=== PATIENT | male | born 2000 ===

== ENCOUNTER 2018-05-25 17:14 | Emergency (ER) | payer SELFPAY ==
--- NOTE | 2018-05-25 19:23 | UC ---
Throat Pain/Nasal William HPI - HPI Summary HPI Summary: PATIENT COMPLAINS OF SORE THROAT FOR THE PAST 2-3 DAYS. HAS PAIN WITH SWALLOWING AND SUBJECTIVE FEVER. HAS MILD COUGH AND RHINITIS BUT DENIES NAUSEA/ VOMITING. NO EAR PAIN. FEELS EXTREMELY TIRED. PATIENT PREFERS [facility]/ THEIR. - History of Current Complaint Chief Complaint: UCGeneralIllness Stated Complaint: THROAT PAIN Time Seen by Provider: 05/25/18 19:08 Hx Obtained From: Patient Onset/Duration: Gradual Onset, Lasting Days, Still Present Severity: Moderate Pain Intensity: 7 Pain Scale Used: 0-10 Numeric Cough: Nonproductive Associated Signs & Symptoms: Positive: Fever - Allergies/Home Medications Allergies/Adverse Reactions: Allergies Allergy/AdvReac Type Severity Reaction Status Date / Time No Known Allergies Allergy Verified 05/25/18 18:22 PMH/Surg Hx/FS Hx/Imm Hx Previously Healthy: Yes - Surgical History Surgical History: Yes Surgery Procedure, Year, and Place: clavicle repair - Family History Known Family History: Positive: Non-Contributory - Social History Alcohol Use: Weekly Alcohol Amount: 3 beers Substance Use Type: Marijuana Smoking Status (MU): Never Smoked Tobacco Review of Systems All Other Systems Reviewed And Are Negative: Yes Constitutional: Positive: Fever, Fatigue ENT: Positive: Sore Throat, Nasal Discharge Respiratory: Positive: Cough Cardiovascular: Positive: Negative Gastrointestinal: Positive: Negative Physical Exam Triage Information Reviewed: Yes Appearance: No Pain Distress, Well-Nourished, Ill-Appearing - MILDLY Vital Signs: Initial Vital Signs Temp 98.8 F 05/25/18 18:17 Pulse 74 05/25/18 18:17 Resp 16 05/25/18 18:17 BP 104/62 05/25/18 18:17 Pulse Ox 100 05/25/18 18:17 Laboratory Tests 05/25/18 19:02 Group A Strep Rapid Negative Vital Signs Reviewed: Yes Eyes: Positive: Conjunctiva Clear ENT: Positive: Hearing grossly normal, Pharyngeal erythema, TMs normal, Tonsillar swelling, Tonsillar exudate Neck: Positive: Supple, Tenderness @ - TENDER SPFL CERVICAL LAD, Enlarged Nodes @ - TENDER SPFL CERVICAL LAD Respiratory Exam: Normal Cardiovascular Exam: Normal Abdomen Description: Positive: Nontender, Soft Musculoskeletal: Positive: No Edema Neurological: Positive: Alert Psychological: Positive: Age Appropriate Behavior Skin: Negative: Rashes Throat Pain/Nasal Course/Dx - Differential Dx/Diagnosis Provider Diagnosis: Tonsillitis with exudate Discharge - Sign-Out/Discharge Documenting (check all that apply): Patient Departure All imaging exams completed and their final reports reviewed: No Studies - Discharge Plan Condition: Stable Disposition: HOME Prescriptions: Magic Mouth Was-CLARITZA/MAAL/LIDO* 5 - 10 ml SWISH SWAL QID PRN #150 ml PRN Reason: Sore Throat predniSONE TAB* [Deltasone 20 MG TAB*] 40 mg PO DAILY #10 tab Patient Education Materials: Tonsillitis (ED) Forms: *Work Release Referrals: No Primary Care Phys,NOPCP [Primary Care Provider] - Additional Instructions: STREP TEST NEGATIVE. YOU LIKELY HAVE A VIRAL TONSILLITIS. CONSIDER MONONUCLEOSIS. BLOOD TEST DONE TODAY. BE AWARE THERE IS A RELATIVELY HIGH FALSE NEGATIVE RATE FOR THIS TEST. OTC CHLORASEPTIC OR CEPACOL LOZENGES AND/OR IBUPROFEN FOR SORE THROAT NEEDED. MAGIC MOUTHWASH AND PREDNISONE WILL ALSO HELP WITH THE SYMPTOMS. ONCE SYMPTOMS RESOLVED - NEW TOOTHBRUSH DO NOT SHARE FOOD, DRINK, UTENSILS CALL THE NUMBER BELOW FOR ASSISTANCE IN ESTABLISHING WITH A PCP An additional resource available to assist in finding the appropriate physician for your health care needs is the [facility] ([facility]). You may contact them by calling [phone]. - Billing Disposition and Condition Condition: STABLE Disposition: Home
--- NOTE | 2018-05-26 16:00 | UC ---
- Progress Note Progress Note: Monospot from May 25, 2018 results as positive. Nursing to call patient and explained the diagnosis of mononucleosis. Patient is to follow-up with her primary care doctor or get rechecked here with any questions or concerns. Course/Dx - Diagnoses Provider Diagnoses: Tonsillitis with exudate Discharge - Sign-Out/Discharge Documenting (check all that apply): Patient Departure All imaging exams completed and their final reports reviewed: No Studies - Discharge Plan Condition: Stable Disposition: HOME Prescriptions: Magic Mouth Was-CLARITZA/MAAL/LIDO* 5 - 10 ml SWISH SWAL QID PRN #150 ml PRN Reason: Sore Throat predniSONE TAB* [Deltasone 20 MG TAB*] 40 mg PO DAILY #10 tab Patient Education Materials: Tonsillitis (ED) Forms: *Work Release Referrals: No Primary Care Phys,NOPCP [Primary Care Provider] - Additional Instructions: STREP TEST NEGATIVE. YOU LIKELY HAVE A VIRAL TONSILLITIS. CONSIDER MONONUCLEOSIS. BLOOD TEST DONE TODAY. BE AWARE THERE IS A RELATIVELY HIGH FALSE NEGATIVE RATE FOR THIS TEST. OTC CHLORASEPTIC OR CEPACOL LOZENGES AND/OR IBUPROFEN FOR SORE THROAT NEEDED. MAGIC MOUTHWASH AND PREDNISONE WILL ALSO HELP WITH THE SYMPTOMS. ONCE SYMPTOMS RESOLVED - NEW TOOTHBRUSH DO NOT SHARE FOOD, DRINK, UTENSILS CALL THE NUMBER BELOW FOR ASSISTANCE IN ESTABLISHING WITH A PCP An additional resource available to assist in finding the appropriate physician for your health care needs is the [facility] ([facility]). You may contact them by calling [phone]. - Billing Disposition and Condition Condition: STABLE Disposition: Home
== END 2018-05-25 19:35 | disposition home or self-care (01) ==
LOC: UCEAST 17:14
DX: J03.90 Acute tonsillitis, unspecified (principal)
CPT/HCPCS: 36415; 86308; 87651; 99202; G0463

== ENCOUNTER 2018-10-31 21:59 | Inpatient (IN) | payer OTHER ==
--- NOTE | 2018-10-31 22:19 | ED ---
Substance Abuse/Use - HPI Summary HPI Summary: Pt is a 18 y/o male who presents to the ED s/p overdose. Last night he took a bunch of sleeping pills from his friend in an attempted suicide. Pt is unsure what kind of pills they were, but thinks they may be either Hydroxyzine or Trazodone. Today he was sleeping a lot and also cut his left arm, and subsequently missed a final exam. Pt states that hes had mental health issues for about 8 years, which have been worsening over the past 3 years. He has been self-injuring for the past 8 months. He has never received psychiatric help because his parents are conservative and dont believe in mental health. He often feels at odds with them because of his bisexuality. Pt also denies going to [facility] for counseling because it is hard to get an appointment. He states that he has been eating very little recently. He denies any HI. Pt reports using heroin, street Xanax, MDMA, marijuana, GHB, ketamine, cocaine, and Adderall. Tetanus UTD. As per pt I feel unstable and impulse. I feel like I m destroying my life and want help. He denies any high-risk sexual activity. - History Of Current Complaint Chief Complaint: EDMentalHealth Stated Complaint: MHE/SI PER PT Time Seen by Provider: 10/31/18 22:16 Hx Obtained From: Patient Onset/Duration of Drug/ETOH Abuse: Weeks Ingestion History: Type/Name Of Drug - possible Hydroxyzine or Trazodone, Approximate Time Of Ingestion - last night Overdose Characteristics: Oral Character: Depressed Alleviating Factor(s): Nothing Associated Signs And Symptoms: Appetite Change, Intentional Ingestion Related Hx: Possible Multi Drug Ingestion, Suicidal: Thoughts, Suicidal: Gesture - Allergies/Home Medications Allergies/Adverse Reactions: Allergies Allergy/AdvReac Type Severity Reaction Status Date / Time No Known Allergies Allergy Verified 10/31/18 22:14 Home Medications: Home Medications NK [No Home Medications Reported] 10/31/18 [History Confirmed 10/31/18] PMH/Surg Hx/FS Hx/Imm Hx EENT History: Reports: Hx Tonsillitis Psychiatric History: Reports: Hx Depression - undiagnosed - Surgical History Surgery Procedure, Year, and Place: clavicle repair Infectious Disease History: No Infectious Disease History: Denies: Traveled Outside the [place] in Last 30 Days - Family History Known Family History: Positive: Non-Contributory - Social History Alcohol Use: Weekly Alcohol Amount: 3 beers Hx Substance Use: Yes Substance Use Type: Reports: Cocaine, Heroin, Marijuana, Other - ketamine, MDMA , Adderall Hx Tobacco Use: No Smoking Status (MU): Never Smoked Tobacco Review of Systems Positive: Other - decreased appetite Positive: Other - self-inflicted lacerations LUE Positive: Depressed, Other - SI, NEGATIVE: HI All Other Systems Reviewed And Are Negative: Yes Physical Exam - Summary Physical Exam Summary: Appearance: well appearing, no pain distress Skin: warm, dry, reflects adequate perfusion, old-appearing needle puncture site in right upper arm, multiple abrasions to left arm, no visible track marquez Head/face: normal Eyes: EOMI, SHINE ENT: mucous membranes moist Neck: supple, non-tender Respiratory: CTA, breath sounds present Cardiovascular: RRR, pulses symmetrical Abdomen: non-tender, soft Bowel Sounds: present Musculoskeletal: normal, strength/ROM intact Neuro: normal, sensory motor intact, A&Ox3 Psych: flat affect, persistent SI Triage Information Reviewed: Yes Vital Signs On Initial Exam: Initial Vitals Temp Pulse Resp BP Pulse Ox 99.8 F 97 16 132/83 98 10/31/18 22:04 10/31/18 22:04 10/31/18 22:04 10/31/18 22:04 10/31/18 22:04 Vital Signs Reviewed: Yes Procedures - Laceration/Wound Repair 1 Location: upper extremity - LUE Description: Linear Anesthesia: 1.0% - 3 cc, Lido Length, Depth and Shape: 4 cm Laceration/Wound Explored: clean Closure: Dorys #__ - 4 Diagnostics - Vital Signs Vital Signs Temp Pulse Resp BP Pulse Ox 10/31/18 22:04 99.8 F 97 16 132/83 98 - Laboratory Result Diagrams: 10/31/18 22:24 10/31/18 22:25 Lab Statement: Any lab studies that have been ordered have been reviewed, and results considered in the medical decision making process. - EKG 23:23 Cardiac Rate: NL - 80 bpm EKG Rhythm: Sinus Rhythm ST Segment: Normal Summary of EKG Findings: Nl axis, nl intervals Re-Evaluation - Re-Evaluation First Eval Re-Evaluation Time: 22:44 Change: Unchanged Comment: Pt is medically cleared for a MHE. Course/Dx - Course Course Of Treatment: Payroll Supervisor was medically evaluated and cleared for psychiatric evaluation. There laceration in the left upper extremity was repaired. Tetanus is up-to-date. Patient prefers they/them pronouns. Mental health evaluation is pending at time of disposition. Signed out to oncoming ER physician. Expected course is likely admission. - Diagnoses Differential Diagnosis/HQI/PQRI: Positive: Acute Psychosis, Anxiety, Depression , Drug Abuse, Metabolic Disorder, Suicidal Risk Provider Diagnoses: Depression, Polysubstance abuse, Laceration of left upper extremity, Self- inflicted injury Discharge - Sign-Out/Discharge Documenting (check all that apply): Sign-Out Patient Signing out patient TO: Rolando Felix Patient Received Moderate/Deep Sedation with Procedure: No - Discharge Plan Referrals: No Primary Care Phys,NOPCP [Primary Care Provider] - - Attestation Statements Document Initiated by Scribe: Yes Documenting Scribe: Swetha Sal Provider For Whom Scribe is Documenting (Include Credential): Chandler Mcdonough MD Scribe Attestation: Swetha Díaz, scribed for Chandler Mcdonough MD on 11/01/18 at 0618. Scribe Documentation Reviewed: Yes Provider Attestation: The documentation as recorded by the Swehta pretty accurately reflects the service I personally performed and the decisions made by , Chandler Mcdonough MD Status of Scribe Document: Viewed
[2018-10-31 22:31] LABS: ABS Eosinophils 0.1 10^3/ul (0-0.6); ABS Lymphocytes 1.5 10^3/ul (1.0-4.8); ABS Monocytes 0.5 10^3/ul (0-0.8); ABS Neutrophils 3.4 10^3/ul (1.5-7.7); Eosinophil % 1.1 %; Hematocrit 44 % (42-52); Hemoglobin 14.7 g/dL (14.0-18.0); Lymphocyte % 27.1 %; Mean Corpuscular HGB Conc 34 g/dL (31-36); Mean Corpuscular Hemoglobin 29 pg (27-31); Mean Corpuscular Volume 87 fL (80-94); Mean Platelet Volume 8.2 fL (7.4-10.4); Nucleated Red Blood Cells % 0.1; Platelet Count 349 10^3/uL (150-450); Red Blood Count 5.04 10^6 /uL (4.18-5.48); Red Cell Distribution Width 14 % (10.5-15); White Blood Count 5.5 10^3/uL (3.5-10.8)
[2018-10-31 22:48] LABS: ALT 19 U/L (7-52); AST 31 U/L (13-39); Albumin 4.8 g/dL (3.2-5.2); Albumin/Globulin Ratio 1.4 (1-3); Alkaline Phosphatase 79 U/L (34-104); Anion Gap 11 mmol/L (2-11); BUN/Creatinine Ratio 14.5 (8-20); Blood Urea Nitrogen 12 mg/dL (6-24); CO2 Carbon Dioxide 26 mmol/L (22-32); Calcium 9.9 mg/dL (8.6-10.3); Chloride 102 mmol/L (101-111); EGFR African American 142.9 (>60); EGFR Non-African American 118.1 (>60); Globulin 3.5 g/dL (2-4); Glucose 94 mg/dL (70-100); Potassium 3.6 mmol/L (3.5-5.0); Sodium 139 mmol/L (135-145); Total Protein 8.3 g/dL (6.4-8.9)
[2018-10-31 23:18] LABS: Alcohol < 10 mg/dL (<10); Salicylate < 2.50 mg/dL (<30)
[2018-10-31 23:26] LABS: Urine Appearance Cloudy; Urine Bacteria 1+ (Absent); Urine Bilirubin Negative (Negative); Urine Blood Negative (Negative); Urine Color Amber; Urine Glucose Negative (Negative); Urine Ketones 1+ (Negative); Urine Nitrite Negative (Negative); Urine Protein 2+(100 mg/dL) (Negative); Urine Red Blood Cell Absent (Absent); Urine Specific Gravity 1.032 (1.010-1.030); Urine Urobilinogen Negative (Negative); Urine White Blood Cell 3+(>20/hpf) (Absent)
[2018-10-31 23:33] LABS: TSH (Thyroid Stimulating Horm) 1.75 mcIU/mL (0.34-5.60)
[2018-10-31 23:34] LABS: Acetaminophen < 15 mcg/mL
[2018-10-31 23:43] LABS: Urine Benzodiazepine Screen Presumptive Positive (None Detect); Urine Opiates Screen None Detected (None Detect)
--- NOTE | 2018-11-01 07:03 | ED ---
Progress - Progress Note Progress Note: Pt is a signout from Dr. Mcdonough pending MHE. Re-Evaluation - Re-Evaluation First Eval Re-Evaluation Time: 09:21 Change: Unchanged Comment: As per Dr. Vasquez, the pt will be admitted to the [facility] with a dx of unspecified depression. Course/Dx - Diagnoses Provider Diagnoses: Depression Discharge - Sign-Out/Discharge Documenting (check all that apply): Patient Departure Receiving patient FROM: Chandler Mcdonough - Discharge Plan Condition: Stable Disposition: PSYCHIATRIC FACILITY-[facility] [place] - Billing Disposition and Condition Condition: STABLE Disposition: Psychiatric Facility [facility] [place] - Attestation Statements Document Initiated by Scribe: Yes Documenting Scribe: Daniela Tolentino Provider For Whom Vaishali is Documenting (Include Credential): Rolando Felix MD. Scribe Attestation: Daniela Díaz, nellieed for Rolando Felix MD. on 11/01/18 at 1040. Scribe Documentation Reviewed: Yes Provider Attestation: The documentation as recorded by the Daniela pretty accurately reflects the service I personally performed and the decisions made by Rolando waggoner MD. Status of Scribe Document: Viewed
[2018-11-01] MEDS ORDERED: Acetaminophen TAB* 325 MG PO PRN (09:32)
[2018-11-01] MEDS ORDERED: Al Hydrox/Mg Hydrox/Simet LIQ* 30 ML UDC PO PRN (09:32)
[2018-11-01 10:19] LABS: Hepatitis C Antibody Nonreactive (Nonreactive)
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
--- NOTE | 2018-11-02 13:48 | PN ---
Subjective - Subjective Date of Service: 11/02/18 Service Type: 17245 Hosp care 25 min moderate complexity Subjective: Patient is euthymic with bright affect. He is calm and pleasant. Patient given SAM packet to assist him in identifying substance use history. He reports frustration that his parents do not support mental health efforts or treatment. He is vague about plans for housing or employment after semester ends at [employer]. Objective - General Observations Appearance: Disheveled Stature: Thin Posture: WNL Eye Contact: Average Behavior/Activity: WNL - Interaction Observations Attitude Towards Examiner: Cooperative Stated Mood: Euthymic Affect: Bright Speech Pattern/Tone: Clear, Appropriate, Normal Volume Thought Process: Coherent Perception: WNL Thought Content: WNL Hallucination Type: Denies Delusion Type: Denies - Cognitive Function Orientation: A&O x 4 Level of Consciousness: Alert Cognition: WNL Estimated Intelligence: Normal Insight: Difficulty Acknowledging Presence of Psyciatric Problems Judgment Within Normal Limits: No Ability to Make Reasonable Decisions: Moderately Impaired - Group Participation Participates in Group Activities: Yes Assessment - Assessment Merits Inpatient Hospitalization: For Immediate Safety, For Stabilization, For Discharge Planning Inpatient DSM-V Dx: F39 Clinical Impression: 18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 He reports history of depressed mood and growing up in a strict, denominational household. Since coming to college, the patient has been engaging in several high risk behaviors, including substance use, shoplifting and hypersexuality. He merits hospitalization for immediate safety and stabilization. Plan - Plan Treatment Plan: Name: YVES BENTLEY Birthdate: 2000 [id number] continue acute intensive psychiatric treatment. may decrease to q30min and allow staff pass/computer use. patient to complete SAM packet consider substance use inpatient treatment Medications: Current Medications Acetaminophen (Tylenol Tab*) 650 mg PO Q4H PRN PRN Reason: for pain; or Temp >101 F Al Hydrox/Mg Hydrox/Simethicone (Maalox Plus*) 30 ml PO Q4H PRN PRN Reason: INDIGESTION Hydroxyzine HCl (Atarax Tab*) 50 mg PO Q6H PRN PRN Reason: ANXIETY - Discharge Plan Discharge Plan: Inpatient Hospitalization
[2018-11-02] MEDS: hydrOXYzine HCL TAB* 50 MG PO PRN (22:42)
--- NOTE | 2018-11-03 11:51 | PN ---
BSU: Group Therapy Note - Service Type Service Type: 46704 Group Psychotherapy - Cognitive Behavioral Group Therapy ( CBT):Patient attended CBT programming this morning and presented with flat affect that did not vary with discussion. Although responsive to direct prompts to respond to questions, patient did not engage in spontaneous conversation.
--- NOTE | 2018-11-03 14:45 | PN ---
Subjective - Subjective Date of Service: 11/03/18 Service Type: 11945 Hosp care 15 min low complexity Subjective: Patient completed substance use history, copy made for chart. He presents in pre-contemplation phase and denies need for substance use treatment. He endorses assumption that rehabs label people and do not treat mental illness. 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 Patient reports desire to engage in mental health counseling. He is encouraged to begin to solidify discharge plans in regards to housing in order to plan for outpatient mental health treatment. Patient reports poor sleep; agreeable to trial of trazodone. Objective - General Observations Appearance: Well Groomed Stature: Thin Posture: WNL Eye Contact: Average Behavior/Activity: WNL - Interaction Observations Attitude Towards Examiner: Cooperative Stated Mood: Euthymic Affect: Bright Speech Pattern/Tone: Clear, Appropriate, Normal Volume Thought Process: Coherent Perception: WNL Thought Content: WNL Hallucination Type: None Delusion Type: None - Cognitive Function Orientation: A&O x 4 Level of Consciousness: Alert Cognition: WNL Estimated Intelligence: Normal Insight: Difficulty Acknowledging Presence of Psyciatric Problems Judgment Within Normal Limits: No Ability to Make Reasonable Decisions: Mildly Impaired - Medication Compliance Cooperative with Inpatient Medication Regimen: Yes - Group Participation Participates in Group Activities: Yes Assessment - Assessment Inpatient DSM-V Dx: F39 Clinical Impression: 18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 He reports history of depressed mood and growing up in a strict, baptism household. Since coming to college, the patient has been engaging in several high risk behaviors, including substance use, shoplifting and hypersexuality. He merits hospitalization for immediate safety and stabilization. Plan - Plan Treatment Plan: Name: YVES BENTLEY Birthdate: 2000 [id number] continue acute intensive psychiatric treatment. may decrease to q30min and allow staff pass/computer use. add trazodone 50mg qhs prn insomnia discharge planning to include outpatient referrals for mental health counseling. Continued Medication Management: Start Medication Medications: Current Medications Acetaminophen (Tylenol Tab*) 650 mg PO Q4H PRN PRN Reason: for pain; or Temp >101 F Al Hydrox/Mg Hydrox/Simethicone (Maalox Plus*) 30 ml PO Q4H PRN PRN Reason: INDIGESTION Hydroxyzine HCl (Atarax Tab*) 50 mg PO Q6H PRN PRN Reason: ANXIETY Last Admin: 11/02/18 22:42 Dose: 50 mg - Discharge Plan Discharge Plan: Inpatient Hospitalization
[2018-11-03] MEDS: traZODone TAB* 50 MG TAB PO PRN (22:25)
[2018-11-03] MEDS: hydrOXYzine HCL TAB* 50 MG PO PRN (22:25)
--- NOTE | 2018-11-04 13:28 | PN ---
Subjective - Subjective Date of Service: 11/04/18 Service Type: 58274 Hosp care 15 min low complexity Subjective: Patient reports improved sleep and slightly improved mood. He reports anxiety causing dissociative episodes. Encouraged to continue use of hydroxyzine prn for anxiety. Patient states he is likely going to reschedule exams with professors. He endorses vague SI to staff. He submitted 72-hour notice this afternoon; agrees to tentative dc wednesday. Objective - General Observations Appearance: Well Groomed Stature: Thin Posture: WNL Eye Contact: Average Behavior/Activity: WNL - Interaction Observations Attitude Towards Examiner: Cooperative Stated Mood: Anxious Affect: Blunted Speech Pattern/Tone: Clear, Appropriate, Normal Volume Thought Process: Coherent Perception: WNL Thought Content: Depressive Thought Process: Lethality: Passive Wish Hallucination Type: None Delusion Type: None - Cognitive Function Orientation: A&O x 4 Level of Consciousness: Alert Cognition: WNL Estimated Intelligence: Normal Insight: Difficulty Acknowledging Presence of Psyciatric Problems Judgment Within Normal Limits: No Ability to Make Reasonable Decisions: Moderately Impaired - Medication Compliance Cooperative with Inpatient Medication Regimen: Yes - Group Participation Participates in Group Activities: Yes Assessment - Assessment Merits Inpatient Hospitalization: For Immediate Safety, For Stabilization, Consolidate Improvements Inpatient DSM-V Dx: F39 Clinical Impression: 18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 He reports history of depressed mood and growing up in a strict, cheondoism household. Since coming to college, the patient has been engaging in several high risk behaviors, including substance use, shoplifting and hypersexuality. He merits hospitalization for immediate safety and stabilization. Plan - Plan Treatment Plan: Name: YVES BENTLEY Birthdate: 2000 [id number] continue acute intensive psychiatric treatment. may decrease to q30min and allow staff pass/computer use. continue trazodone 50mg qhs prn insomnia and hydroxyzine 50mg prn anxiety discharge planning to include outpatient referrals for mental health counseling. Continued Medication Management: Consider Medication Medications: Current Medications Acetaminophen (Tylenol Tab*) 650 mg PO Q4H PRN PRN Reason: for pain; or Temp >101 F Al Hydrox/Mg Hydrox/Simethicone (Maalox Plus*) 30 ml PO Q4H PRN PRN Reason: INDIGESTION Hydroxyzine HCl (Atarax Tab*) 50 mg PO Q6H PRN PRN Reason: ANXIETY Last Admin: 11/03/18 22:25 Dose: 50 mg Trazodone HCl (Desyrel Tab*) 50 mg PO BEDTIME PRN PRN Reason: INSOMNIA Last Admin: 11/03/18 22:25 Dose: 50 mg - Discharge Plan Discharge Plan: Inpatient Hospitalization
--- NOTE | 2018-11-04 18:29 | CONS ---
PSYCHOLOGICAL REPORT: DATE OF CONSULTATION: 11/04/18 PROCEDURE CODE: [id number] REASON FOR REFERRAL: Darya was referred for personality testing secondary to concerns regarding possible lethality as well as characterological vulnerabilities consistent with cluster B type symptoms, as well as concerns regarding possible bipolar condition. TEST ADMINISTERED: Addi completed the [place] Multiphasic Personality Inventory-2 (MMPI-2), and was given feedback in individual conversation regarding test results. Addi has also been seen in the context of cognitive behavioral group psychotherapy on two occasions to date. 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 He identifies as bisexual and describes having difficulties in maintaining healthy and nurturing relationships. He describes stressed family dynamics secondary to his parents strong yarsanism affiliation and strict sense of behavioral conduct. He describes not being open with his parents secondary to concerns of the perceptions of him. Addi also describes having difficulties in maintaining healthy relationship with peers and other friends at school, describing how he tends to affiliate with people who tend to be part of the substance abuse activity. He describes having a hard time relating to people who are not involved in recreational drug use and also describes difficulties with boundary issues as the repeating pattern of problems in his relationships. He elaborates by saying he has expectations of intimacy occurring quickly and responds badly in terms of feeling disappointed and rejected by others who do not reciprocate his sense of immediacy. Addi identifies with a great deal of interest in substance abuse, currently describing having a hard time maintaining sense of priority secondary to impulsive drug use at times. He reports using myriad of different drugs during his college years including cocaine and methamphetamine, as well as heroin both in terms of IV use and intranasally in recent history. He overdosed on sleeping medications and then woke up to find that he had in fact survived and began cutting himself. Addi describes having difficulties with depression and emotional stability dating back to the age of 10 and continues to struggle with recurring symptoms while at [employer]. Currently, he is trying make the decision as to whether to stay in [place] for the summer months or to return home to be with his family in [place], [place]. TEST RESULTS: Addi provides a very elevated profile on this administration of the MMPI-2, having elevated 2/3 emotional duress scales to the point that they are literally off the charts with concomitant extreme low scoring on emotional coping and self-esteem scales. This validity scale configuration is consistent with what is considered to be "cry for help" where people were identifying very high levels of emotional duress and feeling completely unable to cope with difficulties. He subsequently elevates all 10 of the clinical scales but most acutely the schizophrenia scale to an extreme degree (T=170). His other elevations of note includes psychopathic deviate and hypomania, both to similar degree (T=90) with discussion addressing difficulties with impulsive behavior with impaired relationship domain function resultant thereof. He describes difficulties in maintaining healthy relationships describing how he quickly engages in a very intense way and then tends to turn "fall off of the face of the earth". Addi impresses having good insight regarding this dynamic , but there are concerns regarding his resolve to cease and desist from his patterns of substance abuse. IMPRESSIONS AND RECOMMENDATIONS: Darya continues to struggle with depressive symptoms, describing how he expressed some relief from experiencing suicidal rumination today. He implies he still struggles with such thoughts and also endorsed to having them recurrently during prior years. He describes conflict about impending decision about remaining at [employer] to complete a degree as he is unsure of his choice of mechanical engineering as something he really wishes to pursue. As aforementioned, he describes rather sporadic engagement socially and tends towards identification with other people who are engaged in substance abuse. As such continuing hospitalization, there is consideration due to ongoing concerns regarding safety and insight regarding decisions involving substance abuse. Diagnostic consideration includes major depressive disorder without psychosis as well as cluster B personality disorder characteristics including borderline antisocial personality traits with polysubstance abuse as well. [id number]/[facility] #: [id number] [facility] MEDICAL CENTERRoderick
[2018-11-04] MEDS: hydrOXYzine HCL TAB* 50 MG PO PRN (22:36)
[2018-11-04] MEDS: traZODone TAB* 50 MG TAB PO PRN (22:36)
--- NOTE | 2018-11-05 22:07 | PN ---
Subjective - Subjective Date of Service: 11/05/18 Service Type: 00947 Hosp care 15 min low complexity Subjective: Darya reports "I'm kind of all over the place" today. He reports not knowing why he is "a little upset." He reports urges to cut, but resisting them. He says he is not having SI today. REports sleeping OK with trazodone. Objective - General Observations Appearance: Neat Appears Stated Age: Yes Stature: WNL Posture: WNL Eye Contact: Average Behavior/Activity: WNL - Interaction Observations Attitude Towards Examiner: Cooperative Stated Mood: Dysphoric Speech Pattern/Tone: Clear Thought Process: Coherent Perception: WNL Thought Content: WNL Hallucination Type: None Delusion Type: None - Cognitive Function Orientation: A&O x 4 Level of Consciousness: Awake, Alert, Appropriate Cognition: WNL Estimated Intelligence: Above Normal Judgment Within Normal Limits: Yes Ability to Make Reasonable Decisions: Mildly Impaired - Medication Compliance Cooperative with Inpatient Medication Regimen: Yes - Group Participation Participates in Group Activities: Yes Assessment - Assessment Merits Inpatient Hospitalization: For Immediate Safety, For Stabilization, Consolidate Improvements Inpatient DSM-V Dx: F39 Clinical Impression: 18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 He reports history of depressed mood and growing up in a strict, yazdanism household. Since coming to college, the patient has been engaging in several high risk behaviors, including substance use, shoplifting and hypersexuality. He merits hospitalization for immediate safety and stabilization. Plan - Plan Treatment Plan: Name: YVES BENTLEY Birthdate: 2000 [id number] continue acute intensive psychiatric treatment. may decrease to q30min and allow staff pass/computer use. continue trazodone 50mg qhs prn insomnia and hydroxyzine 50mg prn anxiety discharge planning to include outpatient referrals for mental health counseling. Medications: Current Medications Acetaminophen (Tylenol Tab*) 650 mg PO Q4H PRN PRN Reason: for pain; or Temp >101 F Al Hydrox/Mg Hydrox/Simethicone (Maalox Plus*) 30 ml PO Q4H PRN PRN Reason: INDIGESTION Hydroxyzine HCl (Atarax Tab*) 50 mg PO Q6H PRN PRN Reason: ANXIETY Last Admin: 11/04/18 22:36 Dose: 50 mg Trazodone HCl (Desyrel Tab*) 50 mg PO BEDTIME PRN PRN Reason: INSOMNIA Last Admin: 11/04/18 22:36 Dose: 50 mg
[2018-11-05] MEDS: traZODone TAB* 50 MG TAB PO PRN (22:53)
[2018-11-05] MEDS: hydrOXYzine HCL TAB* 50 MG PO PRN (22:54)
[2018-11-06] MEDS: traZODone TAB* 50 MG TAB PO PRN (23:30)
[2018-11-06] MEDS: hydrOXYzine HCL TAB* 50 MG PO PRN (23:30)
[2018-11-07 08:53] VITALS: BP 104/53
--- NOTE | 2018-11-07 12:22 | DCNOTE ---
Subjective - Subjective Service Types: 40684 [facility] Day Mgmt complex over 30 min Discharge Date: 11/07/18 Subjective: Patient reports ambivalence about plans after discharge. He states he has not contacted professors because he does not have a way to do so. Personal Lines Advisor reminded him of instructions given last week to use the unit computer to do so. He states ambivalence about returning home from the summer. With more direct prompts, patient identifies that living at home for the summer is the only realistic option. His father, Segun, is present and we discuss recommendations, including means restriction and increased supervision. Segun states he has taken this week off to support Addi in completing semester and returning home. Segun offers to participate in family therapy and patient balks. Segun offers to assist in he and patient's mother finding a separate therapist than Darya. Darya states he does not want his parents to choose a therapist for him. Personal Lines Advisor paraphrases and assists patient in telling father that he does not want waylon-based treatment. Father states support of this. Patient's charles removed from upper left arm. Lac well-approximated, no drainage. Objective - General Observations Appearance: Well Groomed Stature: Thin Posture: WNL Eye Contact: Average - Interaction Observations Attitude Towards Examiner: Defensive, Dismissive Attitude Towards Parent/Guardian: Disrespectful, Immature Stated Mood: Euthymic Speech Pattern/Tone: Clear, Appropriate, Normal Volume Thought Process: Coherent Perception: WNL Thought Content: WNL Hallucination Type: None Delusion Type: None - Cognitive Function Orientation: A&O x 4 Level of Consciousness: Alert Cognition: WNL Insight: Mostly Blames Others for Problems Judgment Within Normal Limits: Yes - Medication Compliance Cooperative with Inpatient Medication Regimen: Yes - Group Participation Participates in Group Activities: Yes DC Assessment - Assessment Clinical Impression: 18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 He has been psychiatrically stabilized and is appropriate for outpatient treatment. He declines need for substance use treatment. Merits Inpatient Hospitalization: No Clear for Discharge: Adequate Clinical Respons, Acceptable Safety Profile Inpatient DSM-V Dx: F39 Discharge Planning - Discharge Planning Discharge Plan: Outpatient Follow Up Outpatient Program: [facility] Recommendations for Continuing Care: Medication Management, Psychotherapy, Primary Care Followup Medications: Current Medications Hydroxyzine HCl (Atarax Tab*) 50 mg PO Q6H PRN PRN Reason: ANXIETY Last Admin: 11/06/18 23:30 Dose: 50 mg Trazodone HCl (Desyrel Tab*) 50 mg PO BEDTIME PRN PRN Reason: INSOMNIA Last Admin: 11/06/18 23:30 Dose: 50 mg Discharge Planning: Prescriptions provided for discharge [x] Yes [] No Follow up care details as per social work arrangements: [facility] primary care Dr Gauri Glasgow Patient response to discharge plan: [] eager for discharge [x] agreeable with discharge plan [] ambivalent about discharge [] disagrees with discharge today
--- NOTE | 2018-11-08 17:26 | DS ---
CC: [facility] * DISCHARGE SUMMARY: DATE OF ADMISSION: 11/01/18 DATE OF DISCHARGE: 11/07/18 SUPERVISING PSYCHIATRIST: Yoni Vasquez MD * (DICTATED BY VIVI VILLANUEVA NP) DIAGNOSIS: Substance-induced mood disorder, rule out posttraumatic stress disorder. CONDITION AT THE TIME OF DISCHARGE: Improved. The patient denies suicidal ideation acutely. He has identified plans to return home for the summer. His father, Segun, was present and we discussed recommendation including means restriction and increased supervision. Segun states that he has taken this week off to support Addi in completing the semester and returning home. The patient has been observed to be calm and in behavioral control. He has been safe on all checks. He avoided various instructions including following up with his professors. His father is present and states he will help patient coordinate with [employer] in regards to completing this semester. Father offers to assist patient in finding family therapy. The patient states he does not want his parents choosing a therapist for him. [employer] paraphrased and explained to father that the patient does not want waylon-based treatment; father is in support of this. The patient's charles were removed by screen writer from upper left arm, site well approximated, no drainage noted. The patient is discharged to home. INSTRUCTIONS GIVEN TO THE PATIENT: A. Medications: 1. Hydroxyzine 50 mg p.o. q.6 hours p.r.n. anxiety. 2. Trazodone 50 mg p.o. q.h.s. p.r.n. insomnia. B. Diet: Regular. C. Activity: As tolerated. Tobacco cessation was declined by the patient. There are no pending labs or followup diagnostic studies. D. Followup Care: The patient was given followup at [facility] on the day of discharge and encouraged to follow up with his primary care provider in [place], [place] within 30 days. E. Substance use followup: The patient declined the offer of substance use treatment referrals or medications for substance use disorder. 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 The patient reports persistent suicidal ideation, mood instability, impulsivity, irritability. He also reports anhedonia, guilt, shame and passive wish. The patient states he has been engaged in reckless behaviors including polysubstance use, shop lifting and self arm via cutting. He endorses periods of increased energy, hypersexuality, going back to his teenage years. He states that he grew up in a very congregation, conservative, and strict home. He identifies as bisexual and non-binary which he notes would not be accepted in his family of origin. He states that he came to [employer] in the fall of 2015. 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 He states he remained home after leaving the first semester of his sophomore year and returned to [employer] at the beginning of the semester in June 2018. He states that he has had episodes of depression since middle school, but that his family is opposed to mental health treatment. He states that he went to therapy a few times when he and his family were living in [place], but then he stopped because his mother did not approve. The patient states that his parents moved from [place] to [place], [place] this past year and that this was likely in order to be closer to him and control him. The patient reports onset of self harm via cutting at age 13. He last did so yesterday and received charles on his left upper arm while in the emergency department. He reports often ignoring hunger due to amotivation. He denies obsessions or compulsions. He reports periods of disassociation where he does not feel real. He does not feel like he is in his body or does not feel like himself. The patient reports reaching out to professor yesterday when he knew he was going to miss the final exam and the professor coordinated contact with the [employer] house manager. The patient has been getting engaged in an increased substance use since attending college. He states that he experimented with alcohol while in high school, but in college substance abuse became problematic. He states in his first semester, he often drank to intoxication and blacked out. He reports onset of marijuana use and currently smokes a few times per week. He states he was smoking daily in the fall of 2016. He reports frequent use of psychedelics mushrooms and LSD since second semester of college. This use has increased this current semester. He denies tobacco use. He reports experimenting with cocaine and methamphetamine intranasally. He states that he has used heroin IV and intranasally as recent as last week. He reports experimentation with oral Xanax, Adderall, Vyvanse and quetiapine. He denies history of substance use treatment. He denies current alcohol use. Part B: Psychiatric treatment rendered: The patient was admitted to adult behavioral services unit on voluntary status. Code status was full. He was placed on 15-minute check for his safety. This was decreased to 30-minute observation and he was allowed comfort use, computer use and staff pass. He was participatory in supportive milieu, individual sessions with staff and psychoeducational groups. We obtained an MMPI, which primarily endorsed depressive symptoms without psychosis as well as personality disorder traits. Please see full report by psychologist, Dr. David Anaya. The patient was informed of above results and encouraged to attempt to decrease or abstain from substance use prior to formalizing the diagnoses. While on the unit, the patient was clam and in behavioral control. The patient reported mild anxiety at times and he reported difficulty falling asleep. We trailed low-dose trazodone with good effect due to impulsivity and frequent substance use, I am hesitant to prescribe much more than this. He was often dismissive of suggestions by treatment team. He was encouraged to identify definitive plans for housing and for completing his semester. Unfortunately, he did not follow through on these and he was not forthcoming with his parents about discharge planning. On the day of discharge, the patient's father presented unannounced expecting that the patient was going to be discharged. In conversation with the patient, it seemed as though he had not made any other plans and realized that returning home for the summer was the only realistic option. As stated above, the patient was encouraged to follow through with [employer] to identify the status of this semester. The patient's father reports desire to identify local mental health treatment for the patient this summer. Per his father, Darya presented as healthier with a brighter look in his eyes and improved general presentation. The patient completed a safety plan with social work. He was given discharge instructions by nursing staff. VIVI VILLANUEVA, FERNANDA [id number]/[facility] #: [id number] BRANDON
== END 2018-11-07 15:00 | disposition home or self-care (01) | DRG 897 ==
LOC: ED 21:59 → BSU 11-01 09:33
PROVIDERS: ADMIT Psychiatry & Neurology Psychiatry; ATTEND Psychiatry & Neurology Psychiatry
PROC: 0HQEXZZ Repair Left Lower Arm Skin, External Approach (ICD-10-PCS; principal; 2018-11-01)
PROC: GZHZZZZ Group Psychotherapy (ICD-10-PCS; 2018-11-03)
DX: F12.188 Cannabis abuse with other cannabis-induced disorder (principal); F16.14 Hallucinogen abuse with hallucinogen-induced mood disorder; F15.14 Other stimulant abuse with stimulant-induced mood disorder; F32.9 Major depressive disorder, single episode, unspecified; F19.14 Other psychoactive substance abuse with psychoactive substance-induced mood disorder; S41.112A Laceration without foreign body of left upper arm, initial encounter; T42.4X2A Poisoning by benzodiazepines, intentional self-harm, initial encounter; F17.200 Nicotine dependence, unspecified, uncomplicated; X78.9XXA Intentional self-harm by unspecified sharp object, initial encounter; F41.9 Anxiety disorder, unspecified; Z62.810 Personal history of physical and sexual abuse in childhood; F43.10 Post-traumatic stress disorder, unspecified; Z81.1 Family history of alcohol abuse and dependence; Z72.89 Other problems related to lifestyle; Y92.009 Unspecified place in unspecified non-institutional (private) residence as the place of occurrence of the external cause; Z81.8 Family history of other mental and behavioral disorders
CPT/HCPCS: 36415; 80053; 80061; 80307; 80320; 80329; 81003; 81015; 83036; 84443; 85025; 85660; 86703; 86803; 87086; 90853; 93005; 96130; 99222; 99231; 99232; 99238; 99284; A9270-GY; G0480